=== PATIENT | female | born 1980 | race Caucasian/White ===

== ENCOUNTER 2016-10-03 14:32 | Inpatient (IN) | payer MEDICAID, OTHER ==
[~2016-10-03] VITALS: Ht 157.5 cm; Wt 76.7 kg
[~2016-10-03 14:32] MED LIST: ACET325T53 PO; HYDR4TAB26 PO; INSU100V11 SQ; LORA1TAB PO; ONDA4TAB5 PO; POTA20TA83 PO; SENN-153 PO; SSREG SUBCUT
[2016-10-03 14:35] VITALS: BP_SYST 76
[2016-10-03] MEDS ORDERED: NACL 0.9% 1,000 ML IV ONE ×2 (14:45→16:15)
[2016-10-03] MEDS ORDERED: PIPERACILLIN/TAZO 3.38 GM in NS 50 ML IV ONE (14:45)
[2016-10-03] MEDS ORDERED: ESOM20CA PO (15:04)
[2016-10-03] MEDS ORDERED: INSU100V11 SQ (15:04)
[2016-10-03] MEDS ORDERED: HYDR-1189 PO (15:04)
[2016-10-03] MEDS ORDERED: DIPH25TA62 PEG (15:04)
[2016-10-03] MEDS ORDERED: NEU300 PO (15:04)
[2016-10-03] MEDS ORDERED: METH500T6 PO (15:04)
[2016-10-03] MEDS ORDERED: ZOLP10TA2 PO (15:04)
[2016-10-03] MEDS ORDERED: SERT25TA PO (15:04)
[2016-10-03 15:11] LABS: HEMATOCRIT 35.5 % (36-48); HEMOGLOBIN 12.1 g/dL (12.0-16.0); MEAN CORPUSCULAR HEMOGLOBIN 32 pg (27-31); MEAN CORPUSCULAR HGB CONC 34 % (32-36); MEAN CORPUSCULAR VOLUME 95 fL (79.0-98.0); PLATELET COUNT (AUTO) 297 K/uL (130-430); RED BLOOD CELL COUNT(AUTO) 3.72 MIL/uL (4.2-6.2); RED CELL DISTRIBUTION WIDTH 12.4 % (9.0-15.0); WHITE BLOOD COUNT (AUTO) 10.8 K/uL (4.8-10.8)
[2016-10-03 15:15] LABS: CALCIUM 8.8 mg/dL (8.4-11.0); CREATININE 2.39 mg/dL (0.55-1.30)
[2016-10-03 15:17] LABS: INR 0.9 (0.8-1.2); PROTHROMBIN TIME 9.7 SECS (9.5-12.5)
[2016-10-03 15:20] LABS: ALBUMIN 2.6 g/dL (3.4-4.8); TOTAL BILIRUBIN 0.4 mg/dL (0.0-1.0); TOTAL PROTEIN, SERUM 7.1 g/dL (6.4-8.3)
[2016-10-03] MEDS ORDERED: PIPERACILLIN/TAZOBACTAM 3.375 GM/VIAL (ZOSYN) IV ONE (15:22)
[2016-10-03 15:31] LABS: BAND % (MANUAL) 10 % (0-6); BASOPHILS % (MANUAL) 0 % (0-2); EOSINOPHILS % (MANUAL) 0 % (0-7); LYMPHOCYTES % (MANUAL) 11 % (20-46); MONOCYTES % (MANUAL) 7 % (0-11)
[2016-10-03] MEDS ORDERED: SODIUM POLYSTYRENE SULFONATE 15 GM/60 ML UDBTL PO ONE (15:45)
[2016-10-03] MEDS ORDERED: SODIUM BICARBONATE 8.4% JECT 50 MEQ/50 ML SYRINGE IVP ONE (15:45)
[2016-10-03] MEDS ORDERED: INSULIN REGULAR, HUMAN 10 UNITS/0.1 ML INJ IVP ONE (15:45)
[2016-10-03] MEDS ORDERED: CALCIUM CHLORIDE 1 GM/10ML VIAL (13.6 mEq Ca++/VIAL) IVP ONE (15:45)
[2016-10-03] MEDS ORDERED: DEXTROSE 50% JECT 50 ML DISP.SYRIN IVP ONE (15:45)
[2016-10-03 16:16] LABS: BILIRUBIN,URINE NEGATIVE (NEGATIVE); BLOOD, URINE 3+ (NEGATIVE); CLARITY/URINE SL CLOUDY (CLEAR); COLOR,URINE YELLOW (YELLOW); GLUCOSE,URINE NEGATIVE (NEGATIVE); KETONES,URINE NEGATIVE (NEGATIVE); LEUKOCYTE ESTERASE ,URINE 3+ (NEGATIVE); NITRITE, URINE POSITIVE (NEGATIVE); PH,URINE 8.5 (5.0-8.0); PROTEIN URINE 3+ (NEGATIVE); UROBILINOGEN,URINE 0.2 (0.2-1.0)
[2016-10-03 16:25] LABS: BACTERIA,URINE MANY /HPF (None Seen); MUCUS,URINE None Seen /LPF (None Seen); RBC,URINE 20-50 /HPF (0-3); WBC,URINE >100 /HPF (0-3)
[2016-10-03] MEDS ORDERED: DIPHENHYDRAMINE INJ 50 MG/ML VIAL IVP ONE (16:30)
[2016-10-03] MEDS ORDERED: CALCIUM CHLORIDE 1 GM/10 ML DISP.SYRIN (14 mEq Ca++/SYR) ONE (16:32)
[2016-10-03] MEDS ORDERED: MORPHINE 4 MG/ML INJ. SYRINGE IVP ONE (17:00)
[2016-10-03] MEDS ORDERED: ONDANSETRON HCL 4 MG/2 ML VIAL IVP PRN (17:00)
[2016-10-03] MEDS ORDERED: MAGNESIUM SULFATE 50 ML IV PRN (17:00)
[2016-10-03] MEDS ORDERED: DOCUSATE SODIUM 100 MG CAPSULE PO PRN (17:00)
[2016-10-03] MEDS ORDERED: POTASSIUM CHLORIDE 10 MEQ TAB.PRT.SR PO PRN (17:00)
[2016-10-03] MEDS ORDERED: ACETAMINOPHEN 325 MG TABLET PO PRN (17:00)
[2016-10-03] MEDS ORDERED: HYDROcodone/ACETAMIN 5-325 MG TAB (NORCO/ VICODIN) PO PRN (17:00)
[2016-10-03] MEDS ORDERED: ZOLPIDEM TARTRATE 5 MG TABLET PO PRN (17:00)
[2016-10-03] MEDS: INSULIN REGULAR, HUMAN 100 UNITS/ML, 10 ML VIAL (novoLIN R) SUBCUT PRN ×2 (18:43→21:52)
[2016-10-03] MEDS: LORazepam 2 MG/ML VIAL IVP PRN (19:09)
[2016-10-03] MEDS ORDERED: cefTRIAXone 1 GM VIAL ONE (20:48)
[2016-10-03 20:56] VITALS: BP_SYST 129
[2016-10-03] MEDS: NACL 0.9% 1,000 ML IV SCH (21:45)
[2016-10-03] MEDS: cefTRIAXone 1 GM in D5W 50 ML IV SCH (21:45)
[2016-10-03] MEDS: HEPARIN SODIUM,PORCINE 5000 UNITS/ML VIAL SUBCUT SCH (21:50)
[2016-10-03] MEDS: MORPHINE 2 MG/ML INJ. SYRINGE IVP PRN (22:07)
[2016-10-04] VITALS: BP_SYST 96
[2016-10-04 04:00] VITALS: BP_SYST 113
[2016-10-04] MEDS: MORPHINE 2 MG/ML INJ. SYRINGE IVP PRN ×4 (04:26→17:05)
[2016-10-04] MEDS: NACL 0.9% 1,000 ML IV SCH ×2 (04:27→17:48)
[2016-10-04 06:08] LABS: CALCIUM 8.7 mg/dL (8.4-11.0); CREATININE 1.77 mg/dL (0.55-1.30); POTASSIUM 4.8 mmol/L (3.5-5.1)
[2016-10-04 06:22] LABS: BASOPHILS % (AUTO) 0.3 % (0.0-2.0); EOSINOPHILS # (AUTO) 0.1 K/uL (0.0-0.4); EOSINOPHILS % (AUTO) 1.2 % (0.0-4.0); HEMATOCRIT 29.6 % (36-48); LYMPHOCYTES # (AUTO) 1.6 K/uL (1.0-5.5); LYMPHOCYTES % (AUTO) 19.4 % (20.5-51.5); MEAN CORPUSCULAR HEMOGLOBIN 32 pg (27-31); MEAN CORPUSCULAR HGB CONC 34 % (32-36); MEAN CORPUSCULAR VOLUME 96 fL (79.0-98.0); MONOCYTES # (AUTO) 0.6 K/uL (0.0-1.0); MONOCYTES % (AUTO) 6.6 % (1.7-9.3); NEUTROPHILS # (AUTO) 6.1 K/uL (1.8-7.7); NEUTROPHILS % (AUTO) 72.5 % (40.0-70.0); PLATELET COUNT (AUTO) 215 K/uL (130-430); WHITE BLOOD COUNT (AUTO) 8.4 K/uL (4.8-10.8)
[2016-10-04 08:03] VITALS: BP_SYST 113
[2016-10-04] MEDS: HEPARIN SODIUM,PORCINE 5000 UNITS/ML VIAL SUBCUT SCH ×2 (08:37→21:46)
[2016-10-04] MEDS: GABAPENTIN 300 MG CAPSULE PO SCH (08:38)
[2016-10-04] MEDS: LORazepam 2 MG/ML VIAL IVP PRN ×3 (08:50→17:04)
[2016-10-04 13:06] VITALS: BP_SYST 117
[2016-10-04 16:56] VITALS: BP_SYST 107
[2016-10-04] MEDS: cefTRIAXone 1 GM in D5W 50 ML IV SCH (17:07)
[2016-10-04] MEDS: INSULIN REGULAR, HUMAN 100 UNITS/ML, 10 ML VIAL (novoLIN R) SUBCUT PRN ×2 (17:51→21:45)
[2016-10-04 19:20] VITALS: BP_SYST 114
[2016-10-04] MEDS: MORPHINE 4 MG/ML INJ. SYRINGE IVP PRN (21:36)
[2016-10-05] MEDS: MORPHINE 4 MG/ML INJ. SYRINGE IVP PRN ×4 (01:19→12:57)
[2016-10-05 01:34] VITALS: BP_SYST 132
[2016-10-05] MEDS: LORazepam 2 MG/ML VIAL IVP PRN ×3 (03:49→12:56)
[2016-10-05] MEDS: INSULIN REGULAR, HUMAN 100 UNITS/ML, 10 ML VIAL (novoLIN R) SUBCUT PRN ×2 (05:44→12:27)
[2016-10-05] MEDS: NACL 0.9% 1,000 ML IV SCH (05:46)
[2016-10-05 05:53] LABS: BASOPHILS % (AUTO) 0.5 % (0.0-2.0); EOSINOPHILS # (AUTO) 0.1 K/uL (0.0-0.4); EOSINOPHILS % (AUTO) 1.9 % (0.0-4.0); HEMATOCRIT 29.9 % (36-48); HEMOGLOBIN 9.8 g/dL (12.0-16.0); LYMPHOCYTES # (AUTO) 1.8 K/uL (1.0-5.5); LYMPHOCYTES % (AUTO) 24.6 % (20.5-51.5); MEAN CORPUSCULAR HEMOGLOBIN 32 pg (27-31); MEAN CORPUSCULAR HGB CONC 33 % (32-36); MEAN CORPUSCULAR VOLUME 97 fL (79.0-98.0); MONOCYTES # (AUTO) 0.4 K/uL (0.0-1.0); NEUTROPHILS # (AUTO) 4.8 K/uL (1.8-7.7); PLATELET COUNT (AUTO) 231 K/uL (130-430); RED BLOOD CELL COUNT(AUTO) 3.09 MIL/uL (4.2-6.2); RED CELL DISTRIBUTION WIDTH 12.5 % (9.0-15.0); WHITE BLOOD COUNT (AUTO) 7.1 K/uL (4.8-10.8)
[2016-10-05 05:59] LABS: CALCIUM 8.4 mg/dL (8.4-11.0); CREATININE 1.1 mg/dL (0.55-1.30); POTASSIUM 4.6 mmol/L (3.5-5.1)
[2016-10-05 06:48] VITALS: BP_SYST 142
[2016-10-05 08:00] VITALS: BP_SYST 135
[2016-10-05] MEDS: GABAPENTIN 300 MG CAPSULE PO SCH (09:04)
[2016-10-05] MEDS: HEPARIN SODIUM,PORCINE 5000 UNITS/ML VIAL SUBCUT SCH (09:11)
[2016-10-05 11:26] VITALS: BP_SYST 136
[2016-10-05 12:17] VITALS: BP_SYST 122
[2016-10-05] MEDS ORDERED: MUPIROCIN 2% TOPICAL OINTMENT 22 GM TP SCH (21:00)
[2016-10-06] MEDS ORDERED: ESOM20CA38 PO (07:39)
[2016-10-06] MEDS ORDERED: POTA20TA83 PO (07:39)
== END 2016-10-05 17:26 | DRG 720 ==
LOC: SED 14:32 → STU 16:11
PROVIDERS: ADMIT General Practice; ATTEND General Practice
DX: A41.9 Sepsis, unspecified organism (principal); N17.0 Acute kidney failure with tubular necrosis; L89.154 Pressure ulcer of sacral region, stage 4; G82.20 Paraplegia, unspecified; E44.0 Moderate protein-calorie malnutrition; E87.5 Hyperkalemia; F11.20 Opioid dependence, uncomplicated; N39.0 Urinary tract infection, site not specified; E11.9 Type 2 diabetes mellitus without complications; Z93.3 Colostomy status; Z88.1 Allergy status to other antibiotic agents; Z88.2 Allergy status to sulfonamides; Z79.899 Other long term (current) drug therapy; Z87.81 Personal history of (healed) traumatic fracture; Z68.30 Body mass index [BMI] 30.0-30.9, adult; Z74.01 Bed confinement status
CPT/HCPCS: 36415; 71010; 80048; 80053; 81000-TC; 82962; 83605; 83690-TC; 83735-TC; 85007; 85025; 85027; 85610-TC; 87040-TC; 87081; 87086; 87186-TC; 93005; 96361; 96374; 96375; 99285; J0696; J1200; J1644; J1815; J2060; J2270; J2405; J2543; J7030; J7060

== ENCOUNTER 2016-10-06 07:24 | Inpatient (IN) | payer MEDICAID ==
[~2016-10-06] VITALS: Ht 167.6 cm; Wt 73.9 kg
[~2016-10-06 07:24] MED LIST changes: +DIPH25TA62 PEG; +HYDR-1189 PO; +METH500T6 PO; +NEU300 PO; -POTA20TA83 PO; +SERT25TA PO; +ZOLP10TA2 PO
--- NOTE | 2016-10-06 07:24 | NUR ---
Arrived via BLS ambulance. Placed in room 6. Placed on cafeteria monitor, blood pressure machine and pulse oximeter. To gown for exam. Side rails up.
--- NOTE | 2016-10-06 07:31 | NUR ---
ER Dr. Licea at bedside examining patient.
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
[2016-10-06 07:32] VITALS: BP_SYST 132
[2016-10-06] MEDS ORDERED: POTA20TA83 PO (07:39)
[2016-10-06] MEDS ORDERED: ESOM20CA38 PO (07:39)
--- NOTE | 2016-10-06 07:39 | NUR ---
Medication reconciliation completed based upon medication list provided by SNF.
[2016-10-06] MEDS ORDERED: MORPHINE 2 MG/ML INJ. SYRINGE IVP ONE (07:45)
[2016-10-06] MEDS ORDERED: ONDANSETRON HCL 4 MG/2 ML VIAL IVP ONE (07:45)
[2016-10-06] MEDS: NS 500 ML IV SCH ×2 (07:47→10:01)
--- NOTE | 2016-10-06 07:55 | NUR ---
Lab at bedside for blood draw.
--- NOTE | 2016-10-06 08:09 | NUR ---
Note philippe in EDM - 10/06/16 at 0811 by AFIA Pt alert, responsive, states that she is ready to go home. Called significant other, Olayinka Hassan, by number provided by patient. He states that he will come cloth picker pt.
[2016-10-06 08:10] LABS: BASOPHILS % (AUTO) 0.5 % (0.0-2.0); EOSINOPHILS # (AUTO) 0.2 K/uL (0.0-0.4); EOSINOPHILS % (AUTO) 2.8 % (0.0-4.0); HEMATOCRIT 31.4 % (36-48); HEMOGLOBIN 10.1 g/dL (12.0-16.0); LYMPHOCYTES # (AUTO) 1.8 K/uL (1.0-5.5); LYMPHOCYTES % (AUTO) 30.3 % (20.5-51.5); MEAN CORPUSCULAR HEMOGLOBIN 31 pg (27-31); MEAN CORPUSCULAR HGB CONC 32 % (32-36); MEAN CORPUSCULAR VOLUME 96 fL (79.0-98.0); MONOCYTES # (AUTO) 0.3 K/uL (0.0-1.0); MONOCYTES % (AUTO) 5.3 % (1.7-9.3); NEUTROPHILS # (AUTO) 3.7 K/uL (1.8-7.7); NEUTROPHILS % (AUTO) 61.1 % (40.0-70.0); PLATELET COUNT (AUTO) 261 K/uL (130-430); RED BLOOD CELL COUNT(AUTO) 3.27 MIL/uL (4.2-6.2); RED CELL DISTRIBUTION WIDTH 12.3 % (9.0-15.0)
[2016-10-06 08:11] LABS: BILIRUBIN,URINE NEGATIVE (NEGATIVE); BLOOD, URINE 3+ (NEGATIVE); CLARITY/URINE HAZY (CLEAR); COLOR,URINE YELLOW (YELLOW); GLUCOSE,URINE 1+ (NEGATIVE); KETONES,URINE NEGATIVE (NEGATIVE); LEUKOCYTE ESTERASE ,URINE 1+ (NEGATIVE); NITRITE, URINE NEGATIVE (NEGATIVE); PH,URINE 5.5 (5.0-8.0); PROTEIN URINE 3+ (NEGATIVE); UROBILINOGEN,URINE 0.2 (0.2-1.0)
[2016-10-06 08:18] LABS: RBC,URINE 20-50 /HPF (0-3)
[2016-10-06 08:19] LABS: BACTERIA,URINE MODERATE /HPF (None Seen); WBC,URINE 20-50 /HPF (0-3)
[2016-10-06 08:21] LABS: CALCIUM 8.6 mg/dL (8.4-11.0); CREATININE 0.72 mg/dL (0.55-1.30); POTASSIUM 4.8 mmol/L (3.5-5.1)
[2016-10-06 08:25] LABS: ALBUMIN 2.1 g/dL (3.4-4.8); TOTAL BILIRUBIN 0.2 mg/dL (0.0-1.0); TOTAL PROTEIN, SERUM 6.3 g/dL (6.4-8.3)
[2016-10-06 08:27] LABS: INR 0.8 (0.8-1.2); PROTHROMBIN TIME 9.1 SECS (9.5-12.5)
--- NOTE | 2016-10-06 08:46 | NUR ---
Pt resting quietly, eyes closed, NAD.
--- NOTE | 2016-10-06 08:50 | NUR ---
Patient will be admitted to care of Dr. Henderson. Admitted to Med/Surg unit. Will go to room 112A. Belongings list completed. Summary report printed. Bedside report given to FAUSTO Pino.
--- NOTE | 2016-10-06 09:09 | NUR ---
ADMISSION NOTE Received patient from ER via sydni, received report from Cassius LAMBERT. Patient admitted with diagnosis of Symptomatic Gallstone. Patient oriented to hospital routine, call light, toileting and safety-patient verbalized understanding.
[2016-10-06 09:23] VITALS: BP_SYST 132
--- NOTE | 2016-10-06 09:29 | NUR ---
GI CONSULT CALLED Called [phone] ELIE OLIVARES Gall stones
[2016-10-06] MEDS ORDERED: ACETAMINOPHEN 325 MG TABLET PO PRN (09:45)
[2016-10-06] MEDS ORDERED: DOCUSATE SODIUM 100 MG CAPSULE PO PRN (09:45)
[2016-10-06] MEDS ORDERED: LORazepam 2 MG/ML VIAL IVP PRN (09:45)
[2016-10-06] MEDS ORDERED: ZOLPIDEM TARTRATE 5 MG TABLET PO PRN (09:45)
[2016-10-06] MEDS ORDERED: MAGNESIUM SULFATE 50 ML IV PRN (09:45)
[2016-10-06] MEDS ORDERED: POTASSIUM CHLORIDE 10 MEQ TAB.PRT.SR PO PRN (09:45)
[2016-10-06] MEDS ORDERED: DEXTROSE 50% JECT 50 ML DISP.SYRIN IVP PRN (09:45)
--- NOTE | 2016-10-06 09:50 | NUR ---
PATIENT'S MOTHER CALLED TO ASK WHY PATIENT HAS BEEN ADMITTED. INFORMED MOTHER THE MD'S SUSPECT CHOLELITHIASIS AND SHE WILL BE GOING THROUGH A FEW TESTS TO DETERMINE THAT
--- NOTE | 2016-10-06 10:36 | NUR ---
0800 BG 150, 0945 BG CHECK APPROVED AT 1015, NOT INDICATED PATIENT BG WAS JUST CHECKED, PATIENT IS NPO AND HAS NOT STARTED D5, BG WILL BE RECHECKED PER PROTOCOL AT 1130
--- NOTE | 2016-10-06 10:55 | NUR ---
PATIENT TURNED AND REPOSITIONED BY RNSWATI AND INSIDE SALES RECRUITER PATRICIA JOHNSON
[2016-10-06] MEDS: MORPHINE 2 MG/ML INJ. SYRINGE IVP PRN ×3 (11:04→21:40)
[2016-10-06 11:48] VITALS: BP_SYST 104
--- NOTE | 2016-10-06 12:07 | NUR ---
BG 159, WILL COVER WHEN IV FLUIDS ARE HUNG. PATIENT CURRENTLY SLEEPING. NO SIGNS OF DISTRESS
[2016-10-06] MEDS: PIPERACILLIN/TAZO 3.375/DEX-IS 50 ML IV SCH ×2 (12:15→18:19)
[2016-10-06] MEDS: D5NS 1,000 ML IV SCH ×2 (12:15→21:40)
[2016-10-06] MEDS ORDERED: PANTOPRAZOLE SODIUM 40 MG/VIAL (PROTONIX) IVP ONE (13:45)
--- NOTE | 2016-10-06 13:58 | NUR ---
2 UNITS OF NOVOLOG GIVEN. PATIENT REQUESTING MORE PAIN MEDICATION. EXPLAINED TO PATIENT SHE COULD NOT HAVE NARCOTICS UNTIL AFTER THE HIDA SCAN.
[2016-10-06] MEDS: INSULIN ASPART 100 UNITS/ML, 10 ML VIAL (NovoLOG) SUBCUT PRN (14:49)
[2016-10-06] MEDS: METHOCARBAMOL 500 MG TABLET PO SCH ×2 (15:00→21:39)
--- NOTE | 2016-10-06 15:02 | NUR ---
patient medicated as ordered, repositioned by rn. colostomy bag assessed, raphael assessed.
--- NOTE | 2016-10-06 15:12 | NUR ---
PATIENT TAKEN TO HIDA SCAN VIA GURNEY
--- NOTE | 2016-10-06 15:45 | NUR ---
Wound evaluation: Attempted to see patient for wound evaluation, the patient was at a procedure for a HIDA scan.
[2016-10-06 15:46] VITALS: BP_SYST 130
--- NOTE | 2016-10-06 16:33 | NUR ---
1500 meds delayed due to npo and now patient is still in nuclear med for hida scan
--- NOTE | 2016-10-06 17:10 | NUR ---
Wound evaluation: Attempted to see patient for wound evaluation, the patient was at a procedure for a HIDA scan. Second attempt.
--- NOTE | 2016-10-06 17:38 | NUR ---
PATIENT REMAINS IN NUCLEAR MEDICINE FOR EXAM. MOTHER CALLED TO CHECK ON HER. UPDATED MOTHER ON PATIENT'S LOCATION
[2016-10-06 19:40] VITALS: BP_SYST 123
--- NOTE | 2016-10-06 19:40 | NUR ---
INITIAL NOTES; -Pt is a/ox4, resting in bed. Pt denies any pain,chest pain,sob,or any acute distress this time. Almonte cath w/ gravity drains clear yellow urine output. Colostomy in place,no leakage axaos-owth-bopyzh yellow stool. IV site of rt wrist #20 patent, no s/s any iv infiltration noted. IVF @ D5NS @ 80ml/hr. Nikita Lower ankles and feet edema + 2 pitting noted. Elevates nikita lower extrem with pillows. All safety measures in place. SCD in place nikita lower extremities. Skin tear of lower abdomen-cleaned w/ NS, applied Z-guard. Discussed poc,all safety measures, to be NPO after midnight for EGD procedure, pt verbalized understanding, but pt stated that GI MD didn't discuss EGD procedure with patient yet. Informed pt to be NPO after midnight and to ask GI MD tomorrow prior EGD procedure, pt verbalized understanding. Call light w/in reach. Continue to monitor pt.
[2016-10-06] MEDS: DIPHENHYDRAMINE HCL 25 MG CAPSULE PO PRN (21:39)
--- NOTE | 2016-10-06 21:40 | NUR ---
PAIN MEDIC -Pt is c/o abdominal pain, gave Morphine Sulfate 2mg IVP. See EMAR for pain reassessment w/in 30 mins. All safety measures in place. Bed alarm in place, low position, side rails x3. Call light w/in reach. Continue to monitor pt.
[2016-10-06] MEDS: ONDANSETRON HCL 4 MG/2 ML VIAL IVP PRN (21:45)
--- NOTE | 2016-10-06 21:45 | NUR ---
JUST NAUSEA ONLY -Pt is c/o just nausea after pain medication administered. Gave Zofran 4mg IVP. All safety measures in place. Bed alarm in place, low position, side rails x3. Call light w/in reach. Continue to monitor pt.
--- NOTE | 2016-10-06 22:10 | NUR ---
ROUNDS; CHG BATHE PROVIDED AND DRSG CHANGED TOO -Pt awakes, gave CHG bathed and pt tolerated well. Pt denies any pain,chest pain,sob,or any acute distress this time. Almonte cath bag leaked, changed new Almonte cath bag-no leakage noted. Now, pt is cleaned and dry. Turned and repositioned and q 2 hrs. NO s/s any iv infiltration noted. All safety measures in place. Call light w/in reach. Continue to monitor pt.
--- NOTE | 2016-10-07 | NUR ---
NPO AFTER MIDNIGHT FOR EGD PROCEDURE -Reminded pt to be NPO after midnight for EGD procedure, pt verbalized understanding. Removed all food and drink away from tablet. Call light /win reach.
--- NOTE | 2016-10-07 00:12 | NUR ---
ROUNDS; -Pt is resting. No s/s any pain,chest pain,sob,or any acute distress this time noted. NO s/s any IV infiltration noted. Almonte cath w/ gravity drains yellow urine output-no leakage noted. All safety measures in place. Bed alarm in place, low position, side rails x3. Call light w/in reach. Continue to monitor pt.
[2016-10-07] MEDS: PIPERACILLIN/TAZO 3.375/DEX-IS 50 ML IV SCH ×4 (00:57→18:33)
[2016-10-07 01:11] VITALS: BP_SYST 129
[2016-10-07] MEDS: MORPHINE 2 MG/ML INJ. SYRINGE IVP PRN ×3 (01:48→09:31)
[2016-10-07 04:00] VITALS: BP_SYST 125
--- NOTE | 2016-10-07 05:06 | NUR ---
ROUNDS; -Pt is resting. No s/s any pain,chest pain,sob,or any acute distress this time noted. NO s/s any IV infiltration noted. Colostomy in place,no leakage noted of left lower abdominal site. Almonte cath w/ gravity drains yellow urine output-no leakage noted. All safety measures in place. Bed alarm in place, low position, side rails x3. Call light w/in reach. Continue to monitor pt.
[2016-10-07] MEDS: D5NS 1,000 ML IV SCH (05:07)
--- NOTE | 2016-10-07 06:05 | NUR ---
PAIN MEDICATION ADMINISTERED -Pt is c/o abdominal pain, gave Morphine Sulfate 2mg IVP. See EMAR for pain reassessment w/in 30 mins. All safety measures in place. Bed alarm in place, low position, side rails x3. Call light w/in reach. Continue to monitor pt.
--- NOTE | 2016-10-07 07:01 | NUR ---
CLOSING NOTES; -Pt is resting in bed. No s/s any pain,chest pain,sob,or any acute distress noted. Almonte cath w/ gravity drains clear yellow urine output. Colostomy in place,no leakage fspfm-eghz-vkvmhn yellow stool. IV site of rt wrist #20 patent, no s/s any iv infiltration noted. IVF @ D5NS @ 80ml/hr. All safety measures in place. SCD in place juan lower extremities. Kept pt NPO since midnight for EGD procedure, pt verbalized understanding, but pt stated that GI MD didn't discuss EGD procedure with patient yet. Call light w/in reach. Call light w/in reach. Will endorse to oncoming nurse to continue care.
[2016-10-07 07:27] LABS: BASOPHILS % (AUTO) 0.7 % (0.0-2.0); EOSINOPHILS # (AUTO) 0.2 K/uL (0.0-0.4); EOSINOPHILS % (AUTO) 3.7 % (0.0-4.0); HEMATOCRIT 28.3 % (36-48); HEMOGLOBIN 9.4 g/dL (12.0-16.0); LYMPHOCYTES % (AUTO) 34.3 % (20.5-51.5); MEAN CORPUSCULAR HEMOGLOBIN 32 pg (27-31); MEAN CORPUSCULAR HGB CONC 33 % (32-36); MEAN CORPUSCULAR VOLUME 96 fL (79.0-98.0); MONOCYTES # (AUTO) 0.4 K/uL (0.0-1.0); MONOCYTES % (AUTO) 7.1 % (1.7-9.3); NEUTROPHILS # (AUTO) 3.2 K/uL (1.8-7.7); NEUTROPHILS % (AUTO) 54.2 % (40.0-70.0); PLATELET COUNT (AUTO) 277 K/uL (130-430); RED BLOOD CELL COUNT(AUTO) 2.95 MIL/uL (4.2-6.2); RED CELL DISTRIBUTION WIDTH 12.7 % (9.0-15.0); WHITE BLOOD COUNT (AUTO) 5.9 K/uL (4.8-10.8)
[2016-10-07 07:45] LABS: CALCIUM 8.4 mg/dL (8.4-11.0); CREATININE 0.73 mg/dL (0.55-1.30); POTASSIUM 4.9 mmol/L (3.5-5.1)
--- NOTE | 2016-10-07 08:00 | NUR ---
OPENING NOTES PATIENT APPEARS PALE, WITHDRAWN. REPORTS PAIN. ADVISED HER MEDICATIONS ARE DUE AFTER 0900. VITALS WNL.
[2016-10-07] MEDS: GABAPENTIN 300 MG CAPSULE PO SCH (09:31)
[2016-10-07] MEDS: PANTOPRAZOLE SODIUM 40 MG/VIAL (PROTONIX) IVP SCH (09:31)
[2016-10-07] MEDS: SERTRALINE HCL 50 MG TABLET PO SCH (09:32)
[2016-10-07] MEDS: METHOCARBAMOL 500 MG TABLET PO SCH ×3 (09:33→21:11)
[2016-10-07] MEDS: ONDANSETRON HCL 4 MG/2 ML VIAL IVP PRN (09:38)
--- NOTE | 2016-10-07 10:20 | NUR ---
MOTHER CALLED RN TO DISCUSS PTS PSYCH ISSUES. ASKED THAT MD BE MADE AWARE OF PATIENT'S BELIEF AND STRONG DESIRE TO BE ABLE TO WALK. PER MOTHER PATIENT HAS LOST BONE DENSITY IN LEGS AND NOT ONLY IS PARALYZED BUT ALSO HER LEGS WILL BREAK UNDER HER WEIGHT
--- NOTE | 2016-10-07 10:59 | NUR ---
DR RENE AT BEDSIDE TO SEE PATIENT. NEW ORDERS FOR PAIN MEDICATION GIVEN PATIENT HAS NOT BEEN PAIN FREE FOR HER STAY. PER PATIENT SHE DOES NOT WANT DILAUDID, JUST HIGHER DOSE PF MORPHINE. ORDERS RECEIVED FROM DR RENE
[2016-10-07 11:33] VITALS: BP_SYST 103
--- NOTE | 2016-10-07 11:38 | NUR ---
ADVISED PATIENT NEW ORDERS FOR MORPHINE GIVEN AND SHE MAY HAVE THE NEXT DOSE CLOSE TO 1PM.
--- NOTE | 2016-10-07 12:32 | NUR ---
PATIENT MEDICATED FOR PAIN AND WITH ANTIBIOTICS PER ORDERS
[2016-10-07] MEDS: MORPHINE 4 MG/ML INJ. SYRINGE IVP PRN ×3 (12:46→23:04)
[2016-10-07] MEDS: INSULIN ASPART 100 UNITS/ML, 10 ML VIAL (NovoLOG) SUBCUT PRN ×2 (12:49→21:14)
[2016-10-07] MEDS: MEPERIDINE HCL/PF 100 MG/ML AMP ONE ×3 (13:36→14:45)
[2016-10-07] MEDS: MIDAZOLAM HCL 5 MG/5 ML VIAL ONE ×3 (13:36→14:45)
[2016-10-07] MEDS ORDERED: SIMETHICONE 40 MG/0.6 ML ML ONE (13:37)
--- NOTE | 2016-10-07 14:00 | NUR ---
PATIENT TAKEN TO GI LAB
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
--- NOTE | 2016-10-07 14:25 | NUR ---
DR LELIA YOU RE POSSIBLE SEIZURE. Addendum: 10/07/16 at 1519 by Cecilia Ceja RN WRONG PATIENT
[2016-10-07 16:04] VITALS: BP_SYST 129
[2016-10-07 19:20] VITALS: BP_SYST 98
--- NOTE | 2016-10-07 19:20 | NUR ---
INITIAL NOTES; -Pt is a/ox4, resting in bed. Pt denies any pain,chest pain,sob,or any acute distress this time. Daughter is at bedside. Almonte cath w/ gravity drains clear yellow urine output. Colostomy in place,no leakage yczml-fled-afudie yellow stool. IV site of lac #22 patent, no s/s any iv infiltration noted. IVF @ D5NS @ 80ml/hr. Nikita Lower ankles and feet edema + 2 pitting noted. Elevates nikita lower extrem with pillows. All safety measures in place. SCD in place nikita lower extremities. Skin tear of lower abdomen-cleaned w/ NS, applied Z-guard. Discussed poc,all safety measures,pain mgmt, pt verbalized understanding. Fall precaution in place. Call light w/in reach. Continue to monitor pt.
--- NOTE | 2016-10-07 23:04 | NUR ---
PAIN MEDICATION ADMINISTERED -Pt is c/o abdominal pain. Given Morphine Sulfate 4mg IVP by Marciano-Nurse. See EMAR for pain reassessment w/in 30 mins. All safety measures in place. Bed alarm in place, low position, side rails x3. Call light w/in reach. Continue to monitor pt.
[2016-10-08 00:11] VITALS: BP_SYST 114
[2016-10-08] MEDS: D5NS 1,000 ML IV SCH ×2 (00:45→11:45)
[2016-10-08] MEDS: PIPERACILLIN/TAZO 3.375/DEX-IS 50 ML IV SCH ×4 (00:45→18:50)
[2016-10-08] MEDS: MORPHINE 4 MG/ML INJ. SYRINGE IVP PRN ×4 (03:31→20:49)
--- NOTE | 2016-10-08 03:32 | NUR ---
PAIN MEDICATION ADMINISTERED -Pt is c/o abdominal pain. Given Morphine Sulfate 4mg IVP. See EMAR for pain reassessment w/in 30 mins. All safety measures in place. Bed alarm in place, low position, side rails x3. Call light w/in reach. Continue to monitor pt.
[2016-10-08] MEDS: DIPHENHYDRAMINE HCL 25 MG CAPSULE PO PRN (05:51)
--- NOTE | 2016-10-08 05:55 | NUR ---
ROUNDS;BLOOD XROFC=[id number],GAVE 8 UNITS SUBCUT OF SSI NOVOLOG. -Pt is having menstrual period, applied peripad b/w thighs. No s/s IV infiltration noted. IV site of LAC patent,drsg cdi. IVF D5NS @ 80ml/hr. Colostomy bag in place with small loose yellow stool-new bag changed earlier by Abdoulaye Nurse. Almonte cath w/ gravity drains yellow urine output. SCD juan lower extrem in place. All safety measures in place. Bed alarm in place, low position, side rails x3. Call light w/in reach. Continue to monitor pt.
[2016-10-08] MEDS: INSULIN ASPART 100 UNITS/ML, 10 ML VIAL (NovoLOG) SUBCUT PRN ×3 (05:56→20:51)
--- NOTE | 2016-10-08 06:59 | NUR ---
CLOSING NOTES; -Pt is resting in bed. No s/s any acute distress noted. Almonte cath w/ gravity drains clear yellow urine output. Colostomy in place,no leakage noted. IV site of rt wrist #20 patent, no s/s any iv infiltration noted. IVF @ D5NS @ 80ml/hr. All safety measures in place. SCD in place juan lower extremities. Call light w/in reach. Will endorse to oncoming nurse to continue care.
[2016-10-08 07:33] LABS: BASOPHILS % (AUTO) 0.8 % (0.0-2.0); EOSINOPHILS # (AUTO) 0.2 K/uL (0.0-0.4); EOSINOPHILS % (AUTO) 2.7 % (0.0-4.0); HEMATOCRIT 28.8 % (36-48); HEMOGLOBIN 9.4 g/dL (12.0-16.0); LYMPHOCYTES # (AUTO) 1.8 K/uL (1.0-5.5); LYMPHOCYTES % (AUTO) 31.7 % (20.5-51.5); MEAN CORPUSCULAR HEMOGLOBIN 32 pg (27-31); MEAN CORPUSCULAR HGB CONC 33 % (32-36); MEAN CORPUSCULAR VOLUME 97 fL (79.0-98.0); MONOCYTES # (AUTO) 0.3 K/uL (0.0-1.0); MONOCYTES % (AUTO) 5.4 % (1.7-9.3); NEUTROPHILS # (AUTO) 3.3 K/uL (1.8-7.7); NEUTROPHILS % (AUTO) 59.4 % (40.0-70.0); PLATELET COUNT (AUTO) 296 K/uL (130-430); RED BLOOD CELL COUNT(AUTO) 2.97 MIL/uL (4.2-6.2); RED CELL DISTRIBUTION WIDTH 12.5 % (9.0-15.0); WHITE BLOOD COUNT (AUTO) 5.6 K/uL (4.8-10.8)
--- NOTE | 2016-10-08 07:34 | NUR ---
OPENING08 NOTE RECEIVED PATIENT REPORT FROM SPECIAL MACHINE OPERATOR NURSE. PATIENT RESTING COMFORTABLY IN BED. PATIENT STATES 10/10 PAIN, WOULD LIKE PAIN MEDICATIONS WHEN AVAILABLE. PATIENT HAS NO NOTABLE SIGNS OF DISTRESS AT THIS TIME. IV RUNNING PER MD ORDERS. PATIENTS BED IN LOWEST POSITION, CALL LIGHT WITHIN REACH, AND SIDE RAILS ARE UP FOR SAFETY. WILL CONTINUE TO MONITOR PATIENT FOR CHANGES IN STATUS.
[2016-10-08 07:42] LABS: CALCIUM 7.9 mg/dL (8.4-11.0); CREATININE 0.92 mg/dL (0.55-1.30); POTASSIUM 4.2 mmol/L (3.5-5.1)
[2016-10-08 08:54] VITALS: BP_SYST 122
[2016-10-08] MEDS: METHOCARBAMOL 500 MG TABLET PO SCH ×3 (09:23→20:48)
[2016-10-08] MEDS: SERTRALINE HCL 50 MG TABLET PO SCH (09:23)
[2016-10-08] MEDS: PANTOPRAZOLE SODIUM 40 MG/VIAL (PROTONIX) IVP SCH (09:23)
[2016-10-08] MEDS: GABAPENTIN 300 MG CAPSULE PO SCH (09:23)
--- NOTE | 2016-10-08 09:54 | NUR ---
1000 NOTE PATIENT RESTING COMFORTABLY IN BED. PATIENT STATES 10/10 PAIN, PAIN MEDICATION GIVEN FOR RELIEF, REASSESSED AT 7/10, TOLERABLE AT THIS TIME PER PATIENT. PATIENT HAS NO NOTABLE SIGNS OF DISTRESS AT THIS TIME. IV RUNNING PER MD ORDERS. TAYLOR CATHETER DRAINING TO GRAVITY, PATIENT HAS COLOSTOMY FOR BOWEL MOVEMENTS. PATIENTS BED IN LOWEST POSITION, CALL LIGHT WITHIN REACH, AND SIDE RAILS ARE UP FOR SAFETY. WILL CONTINUE TO MONITOR PATIENT FOR CHANGES IN STATUS.
[2016-10-08 11:36] VITALS: BP_SYST 114
--- NOTE | 2016-10-08 12:17 | NUR ---
1200 NOTE PATIENT RESTING COMFORTABLY IN BED. PATIENT HAS NO NOTABLE SIGNS OF DISTRESS AT THIS TIME. IV RUNNING PER MD ORDERS. TAYLOR CATHETER DRAINING TO GRAVITY, PATIENT HAS COLOSTOMY FOR BOWEL MOVEMENTS. PATIENT TURNED AND REPOSITIONED ON PILLOWS. PATIENTS BED IN LOWEST POSITION, CALL LIGHT WITHIN REACH, AND SIDE RAILS ARE UP FOR SAFETY. WILL CONTINUE TO MONITOR PATIENT FOR CHANGES IN STATUS.
--- NOTE | 2016-10-08 14:38 | NUR ---
1400 NOTE PATIENT RESTING COMFORTABLY IN BED. PATIENT HAS NO NOTABLE SIGNS OF DISTRESS AT THIS TIME. IV RUNNING PER MD ORDERS. TAYLOR CATHETER DRAINING TO GRAVITY, PATIENT HAS COLOSTOMY FOR BOWEL MOVEMENTS. PATIENT TURNED AND REPOSITIONED ON PILLOWS. PATIENT WOULD LIKE MEDICATIONS SOON AVAILABLE. PATIENTS BED IN LOWEST POSITION, CALL LIGHT WITHIN REACH, AND SIDE RAILS ARE UP FOR SAFETY. WILL CONTINUE TO MONITOR PATIENT FOR CHANGES IN STATUS.
[2016-10-08 15:57] VITALS: BP_SYST 106
[2016-10-08] MEDS: SUCRALFATE 1 GM TABLET PO SCH ×3 (17:00→20:48)
--- NOTE | 2016-10-08 18:24 | NUR ---
1800/CLOSING NOTE PATIENT RESTING COMFORTABLY IN BED. PATIENT HAS NO NOTABLE SIGNS OF DISTRESS AT THIS TIME. IV RUNNING PER MD ORDERS. TAYLOR CATHETER DRAINING TO GRAVITY, PATIENT HAS COLOSTOMY FOR BOWEL MOVEMENTS. PATIENT TURNED AND REPOSITIONED ON PILLOWS. WOUND CARE COMPLETED WITH ELIZABETH WOUND CARE NURSE. PATIENT WOULD LIKE MEDICATIONS SOON AVAILABLE. PATIENTS BED IN LOWEST POSITION, CALL LIGHT WITHIN REACH, AND SIDE RAILS ARE UP FOR SAFETY. WILL CONTINUE TO MONITOR PATIENT FOR CHANGES IN STATUS.
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
[2016-10-08 20:00] VITALS: BP_SYST 105
--- NOTE | 2016-10-08 20:00 | NUR ---
OPENING NOTES PATIENT IS A/OX4. NO SIGNS OF DISTRESS. BREATHING IS NON LABORED. VITAL SIGNS ARE STABLE. IV, TAYLOR CATHETER ARE PATENT. PATIENT HAS COMPLAINTS OF PAIN. WILL GIVE PRN PAIN MEDICATION. PATIENT INSTRUCTED TO CALL FOR ASSISTANCE. CALL LIGHT IS WITHIN REACH. SAFETY MEASURES ARE IN PLACE. BED ALARM IS ON. WILL CONTINUE TO MONITOR.
--- NOTE | 2016-10-08 22:02 | NUR ---
ROUNDS PATIENT WAS REPOSITIONED IN BED. PATIENT IS IN BED RESTING COMFORTABLY AND WATCHING TV. NO SIGNS OF DISTRESS. BREATHING IS NON LABORED. CALL LIGHT IS WITHIN REACH. BED ALARM IS ON. WILL CONTINUE TO MONITOR.
[2016-10-09] VITALS: BP_SYST 98
[2016-10-09] MEDS: D5NS 1,000 ML IV SCH ×2 (00:09→11:58)
[2016-10-09] MEDS: PIPERACILLIN/TAZO 3.375/DEX-IS 50 ML IV SCH ×3 (00:09→11:58)
--- NOTE | 2016-10-09 00:55 | NUR ---
ROUNDS PATIENT IS IN BED SLEEPING. NO SIGNS OF DISTRESS. BREATHING IS NON LABORED. CALL LIGHT IS WITHIN REACH. SAFETY MEASURES ARE IN PLACE. WILL CONTINUE TO MONITOR.
[2016-10-09] MEDS: MORPHINE 4 MG/ML INJ. SYRINGE IVP PRN ×3 (01:50→19:06)
--- NOTE | 2016-10-09 01:54 | NUR ---
ROUNDS PATIENT WAS GIVEN PUDDING AND WATER.
[2016-10-09 04:00] VITALS: BP_SYST 98
--- NOTE | 2016-10-09 04:31 | NUR ---
ROUNDS PATIENT IS IN BED SLEEPING. NO SIGNS OF DISTRESS. BREATHING IS NON LABORED. CALL LIGHT IS WITHIN REACH. WILL CONTINUE TO MONITOR.
--- NOTE | 2016-10-09 05:30 | NUR ---
WOUND CARE WOUND TO COCCYX AND LOWER ABDOMINAL WERE CLEANED AND DRESSING CHANGED PER WOUND CARE GUIDELINE. PICTURES WERE ALSO TAKING. PATIENT TOLERATED IT WELL.
[2016-10-09] MEDS: INSULIN ASPART 100 UNITS/ML, 10 ML VIAL (NovoLOG) SUBCUT PRN ×2 (06:34→12:14)
[2016-10-09 07:43] LABS: BASOPHILS # (AUTO) 0.1 K/uL (0.0-0.2); BASOPHILS % (AUTO) 0.9 % (0.0-2.0); EOSINOPHILS # (AUTO) 0.2 K/uL (0.0-0.4); EOSINOPHILS % (AUTO) 3.3 % (0.0-4.0); HEMATOCRIT 26.8 % (36-48); HEMOGLOBIN 8.9 g/dL (12.0-16.0); LYMPHOCYTES # (AUTO) 2.1 K/uL (1.0-5.5); LYMPHOCYTES % (AUTO) 36.7 % (20.5-51.5); MEAN CORPUSCULAR HEMOGLOBIN 32 pg (27-31); MEAN CORPUSCULAR HGB CONC 33 % (32-36); MEAN CORPUSCULAR VOLUME 96 fL (79.0-98.0); MONOCYTES # (AUTO) 0.3 K/uL (0.0-1.0); NEUTROPHILS % (AUTO) 53.1 % (40.0-70.0); PLATELET COUNT (AUTO) 244 K/uL (130-430); RED BLOOD CELL COUNT(AUTO) 2.78 MIL/uL (4.2-6.2); RED CELL DISTRIBUTION WIDTH 12.3 % (9.0-15.0); WHITE BLOOD COUNT (AUTO) 5.7 K/uL (4.8-10.8)
--- NOTE | 2016-10-09 07:48 | NUR ---
Nutrition Note Nutrition Consult (Wound) received 10/08/161922. Pt was seen and assessed by RD on 10/08/16. Please refer to Nutrition Assessment for details. RD to continue to follow per nutrition care standards.
--- NOTE | 2016-10-09 07:59 | NUR ---
WOUND CARE INTERDRY WAS PLACE IN THE LOWER ABDOMINAL FOLD. PATIENT TOLERATED IT WELL.
[2016-10-09 08:00] VITALS: BP_SYST 105
--- NOTE | 2016-10-09 08:00 | NUR ---
OPENING NOTE PATIENT LYING ON BED, WAS ASSESSED, VITAL SIGNS STABLE, WILL FOLLOW UP WITH PATIENT MED AT 0900
--- NOTE | 2016-10-09 08:00 | NUR ---
CLOSING NOTES PATIENT IS IN BED RESTING COMFORTABLY. NO SIGNS OF DISTRESS. BREATHING IS NON LABORED. TAYLOR CATHETER AND IV ARE PATENT. CALL LIGHT IS WITHIN REACH. SAFETY MEASURES ARE IN PLACE. REPORT GIVEN TO MORNING NURSE.
[2016-10-09 08:09] LABS: ALBUMIN 1.8 g/dL (3.4-4.8); BILIRUBIN,DIRECT 0.1 mg/dL (0.0-0.3); CALCIUM 7.9 mg/dL (8.4-11.0); CREATININE 0.87 mg/dL (0.55-1.30); POTASSIUM 4.2 mmol/L (3.5-5.1); TOTAL BILIRUBIN 0.4 mg/dL (0.0-1.0); TOTAL PROTEIN, SERUM 5.4 g/dL (6.4-8.3)
[2016-10-09] MEDS: SUCRALFATE 1 GM TABLET PO SCH ×3 (09:40→17:20)
[2016-10-09] MEDS: PANTOPRAZOLE SODIUM 40 MG/VIAL (PROTONIX) IVP SCH (09:40)
[2016-10-09] MEDS: SERTRALINE HCL 50 MG TABLET PO SCH (09:40)
[2016-10-09] MEDS: GABAPENTIN 300 MG CAPSULE PO SCH (09:40)
[2016-10-09] MEDS: METHOCARBAMOL 500 MG TABLET PO SCH ×2 (09:54→15:01)
--- NOTE | 2016-10-09 10:20 | NUR ---
DISCHARGE PLANNING DC order back to SNF. Faxed SNF referral to [phone]. Will follow up. Addendum: 10/09/16 at 1629 by Cyndi Gaines DP Spoke with Juan Luis who stated patient has not wanted to return back to facility. Met with patient at bedside who agreed to return back to [facility]. Called Juan Luis at [facility] who will return call with bed assignment. Addendum: 10/09/16 at 1630 by Cyndi Gaines DP Placed transportation packet in nurse station. Any ambulance can be arranged. Pending bed assignment. Addendum: 10/09/16 at 1703 by Cyndi Gaines DP Spoke with Juan Ulis patient assigned to [facility] room 17 RN to report bed available anytime. FAUSTO Lopez made aware. Called [facility] [phone] spoke with Dion arranged S transport fruit picker 6:30pm. Placed transportation packet in nurse station. Addendum: 10/09/16 at 1703 by Cyndi Gaines DP Spoke with patient mother Samanta Muhammad [phone] who was made aware.
--- NOTE | 2016-10-09 12:00 | NUR ---
RN ROUNDS PATIENT LYING ON BED, VITAL SIGNS STABLE, PATIENT HAS BEEN PUT A NEW SALINE LOCK TO HER RIGHT ARM
[2016-10-09 14:59] VITALS: BP_SYST 124
--- NOTE | 2016-10-09 18:00 | NUR ---
RN CLOSING NOTES PATIENT LYING ON BED, PATIENT WILL BE TRANSFERED TO [facility], BY AMBULANCE WILL GIVE REPORT AND PREPARE THE D/C TRANSFER SUMMARY
[2016-10-09 18:26] VITALS: BP_SYST 124
[2016-10-09 18:44] VITALS: BP_SYST 104
== END 2016-10-09 19:15 ==
LOC: SED 07:24 → SMU 08:50
PROVIDERS: ADMIT General Practice; ATTEND General Practice
PROC: 0DB78ZX Excision of Stomach, Pylorus, Via Natural or Artificial Opening Endoscopic, Diagnostic (ICD-10-PCS; principal; 2016-10-07 11:00)
DX: K80.20 Calculus of gallbladder without cholecystitis without obstruction (principal); L89.154 Pressure ulcer of sacral region, stage 4; G82.20 Paraplegia, unspecified; E44.0 Moderate protein-calorie malnutrition; E11.65 Type 2 diabetes mellitus with hyperglycemia; N39.0 Urinary tract infection, site not specified; F11.20 Opioid dependence, uncomplicated; E66.9 Obesity, unspecified; Z16.12 Extended spectrum beta lactamase (ESBL) resistance; G89.4 Chronic pain syndrome; K29.70 Gastritis, unspecified, without bleeding; Z88.1 Allergy status to other antibiotic agents; Z88.2 Allergy status to sulfonamides; Z79.899 Other long term (current) drug therapy; Z79.4 Long term (current) use of insulin; Z93.1 Gastrostomy status; Z68.26 Body mass index [BMI] 26.0-26.9, adult; Z74.01 Bed confinement status
CPT/HCPCS: 36415; 43239; 76700-TC; 78226; 80048; 80053; 80076; 81000-TC; 82962; 83605; 83690-TC; 83735-TC; 84484; 85025; 85610-TC; 85730-TC; 87040-TC; 87081; 87086; 88305; 88312; 88313; 96361; 96374; 96375; 99285; A4371; A9537; C9113; J1815; J2175; J2250; J2270; J2405; J2543; J7030; J7042; Q0163

== ENCOUNTER 2017-01-14 13:27 | Inpatient (IN) | payer MEDICAID ==
[~2017-01-14] VITALS: Ht 167.6 cm; Wt 79.4 kg
[2017-01-14 13:27] VITALS: BP_SYST 93
[~2017-01-14 13:27] MED LIST changes: +ESOM20CA38 PO
[2017-01-14] MEDS ORDERED: NACL 0.9% 1,000 ML IV ONE (13:45)
[2017-01-14 14:03] LABS: BASOPHILS # (AUTO) 0.1 K/uL (0.0-0.2); BASOPHILS % (AUTO) 0.9 % (0.0-2.0); EOSINOPHILS # (AUTO) 0.1 K/uL (0.0-0.4); EOSINOPHILS % (AUTO) 1.6 % (0.0-4.0); HEMATOCRIT 33.7 % (36-48); HEMOGLOBIN 11.4 g/dL (12.0-16.0); LYMPHOCYTES # (AUTO) 1.5 K/uL (1.0-5.5); LYMPHOCYTES % (AUTO) 20.9 % (20.5-51.5); MEAN CORPUSCULAR HEMOGLOBIN 32 pg (27-31); MEAN CORPUSCULAR HGB CONC 34 % (32-36); MEAN CORPUSCULAR VOLUME 95 fL (79.0-98.0); MONOCYTES # (AUTO) 0.3 K/uL (0.0-1.0); MONOCYTES % (AUTO) 3.5 % (1.7-9.3); NEUTROPHILS # (AUTO) 5.3 K/uL (1.8-7.7); NEUTROPHILS % (AUTO) 73.1 % (40.0-70.0); PLATELET COUNT (AUTO) 237 K/uL (130-430); RED BLOOD CELL COUNT(AUTO) 3.55 MIL/uL (4.2-6.2); RED CELL DISTRIBUTION WIDTH 12.2 % (9.0-15.0); WHITE BLOOD COUNT (AUTO) 7.3 K/uL (4.8-10.8)
[2017-01-14 14:19] LABS: CALCIUM 8.2 mg/dL (8.4-11.0); CREATININE 0.77 mg/dL (0.55-1.30); POTASSIUM 4.8 mmol/L (3.5-5.1)
[2017-01-14 14:23] LABS: INR 0.9 (0.8-1.2); PROTHROMBIN TIME 9.8 SECS (9.5-12.5)
[2017-01-14 14:24] LABS: ALBUMIN 2.2 g/dL (3.4-4.8); TOTAL BILIRUBIN 0.2 mg/dL (0.0-1.0)
[2017-01-14] MEDS ORDERED: NACL 0.9% 500 ML IV ONE (14:30)
[2017-01-14] MEDS ORDERED: ACET-2165 PO (16:02)
[2017-01-14] MEDS ORDERED: ZOLP5TAB2 PO (16:02)
[2017-01-14] MEDS ORDERED: HYDR-1189 PO (16:02)
[2017-01-14] MEDS ORDERED: INSU100V9 SUBCUT (16:02)
[2017-01-14] MEDS ORDERED: MULT PO (16:02)
[2017-01-14 16:25] LABS: BILIRUBIN,URINE NEGATIVE (NEGATIVE); BLOOD, URINE 2+ (NEGATIVE); CLARITY/URINE CLOUDY (CLEAR); COLOR,URINE YELLOW (YELLOW); GLUCOSE,URINE TRACE (NEGATIVE); KETONES,URINE NEGATIVE (NEGATIVE); LEUKOCYTE ESTERASE ,URINE 2+ (NEGATIVE); NITRITE, URINE NEGATIVE (NEGATIVE); PROTEIN URINE 3+ (NEGATIVE); UROBILINOGEN,URINE 0.2 (0.2-1.0)
[2017-01-14 16:29] LABS: BACTERIA,URINE MANY /HPF (None Seen); MUCUS,URINE 3+ /LPF (None Seen); WBC,URINE >100 /HPF (0-3)
[2017-01-14] MEDS ORDERED: cefTRIAXone 0.5 GM in D5W 50 ML IV ONE (16:45)
[2017-01-14] MEDS ORDERED: IOHEXOL 350 mgI/mL, 150 ML INFUS..BTL IV ONE (16:49)
[2017-01-14] MEDS ORDERED: cefTRIAXone 1 GM IVPB PREMIX 50 ML IV ONE (17:00)
[2017-01-14] MEDS ORDERED: HYDROcodone/ACETAMIN 5-325 MG TAB (NORCO/ VICODIN) PO SCH (18:15)
[2017-01-14] MEDS ORDERED: ONDANSETRON 4 MG ODT TAB PO PRN (18:15)
[2017-01-14] MEDS ORDERED: ZOLPIDEM TARTRATE 5 MG TABLET PO SCH (18:15)
[2017-01-14] MEDS ORDERED: ACETAMINOPHEN 325 MG TABLET PO SCH (18:15)
[2017-01-14 18:22] VITALS: BP_SYST 133
[2017-01-14] MEDS ORDERED: HYDROmorphone 2 MG TAB PO PRN (18:30)
[2017-01-14 20:00] VITALS: BP_SYST 115
[2017-01-14] MEDS: METHOCARBAMOL 500 MG TABLET PO SCH (20:44)
[2017-01-14] MEDS: SENNOSIDES 8.6 MG TABLET PO SCH (20:45)
[2017-01-14] MEDS ORDERED: ONDANSETRON HCL 4 MG/2 ML VIAL IVP ONE (23:45)
[2017-01-14] MEDS ORDERED: MORPHINE 2 MG/ML INJ. SYRINGE IVP ONE (23:45)
[2017-01-15 03:38] VITALS: BP_SYST 110
[2017-01-15 07:04] LABS: ALBUMIN 2.1 g/dL (3.4-4.8); CALCIUM 8.2 mg/dL (8.4-11.0); CREATININE 0.71 mg/dL (0.55-1.30); POTASSIUM 4.7 mmol/L (3.5-5.1); TOTAL BILIRUBIN 0.3 mg/dL (0.0-1.0)
[2017-01-15 07:10] LABS: BASOPHILS % (AUTO) 0.7 % (0.0-2.0); EOSINOPHILS # (AUTO) 0.2 K/uL (0.0-0.4); EOSINOPHILS % (AUTO) 2.2 % (0.0-4.0); HEMATOCRIT 33.1 % (36-48); HEMOGLOBIN 11.3 g/dL (12.0-16.0); LYMPHOCYTES # (AUTO) 2.4 K/uL (1.0-5.5); LYMPHOCYTES % (AUTO) 33.2 % (20.5-51.5); MEAN CORPUSCULAR HEMOGLOBIN 33 pg (27-31); MEAN CORPUSCULAR HGB CONC 34 % (32-36); MEAN CORPUSCULAR VOLUME 96 fL (79.0-98.0); MONOCYTES # (AUTO) 0.5 K/uL (0.0-1.0); MONOCYTES % (AUTO) 6.5 % (1.7-9.3); NEUTROPHILS % (AUTO) 57.4 % (40.0-70.0); PLATELET COUNT (AUTO) 244 K/uL (130-430); RED BLOOD CELL COUNT(AUTO) 3.45 MIL/uL (4.2-6.2); RED CELL DISTRIBUTION WIDTH 12.8 % (9.0-15.0); WHITE BLOOD COUNT (AUTO) 7.1 K/uL (4.8-10.8)
[2017-01-15 08:45] VITALS: BP_SYST 122
[2017-01-15] MEDS: SENNOSIDES 8.6 MG TABLET PO SCH ×2 (09:00→21:00)
[2017-01-15] MEDS: SERTRALINE HCL 50 MG TABLET PO SCH (09:00)
[2017-01-15] MEDS: METHOCARBAMOL 500 MG TABLET PO SCH ×3 (09:54→21:08)
[2017-01-15] MEDS: PANTOPRAZOLE SODIUM 40 MG TAB PO SCH (09:54)
[2017-01-15] MEDS: GABAPENTIN 300 MG CAPSULE PO SCH (09:54)
[2017-01-15] MEDS ORDERED: MORPHINE 2 MG/ML INJ. SYRINGE IVP ONE (11:45)
[2017-01-15] MEDS ORDERED: ONDANSETRON HCL 4 MG/2 ML VIAL IVP ONE (11:45)
[2017-01-15] MEDS: CEFEPIME 1 GM in D5W 50 ML IV SCH ×2 (12:02→21:07)
[2017-01-15 12:22] VITALS: BP_SYST 142
[2017-01-15] MEDS: ENOXAPARIN SODIUM 30 MG/0.3 ML SYRINGE SUBCUT SCH (15:37)
[2017-01-15 16:55] VITALS: BP_SYST 135
[2017-01-15] MEDS: ONDANSETRON HCL 4 MG/2 ML VIAL IVP PRN (17:55)
[2017-01-15 20:00] VITALS: BP_SYST 139
[2017-01-15 23:20] VITALS: BP_SYST 101
[2017-01-15] MEDS: MORPHINE 2 MG/ML INJ. SYRINGE IVP PRN (23:27)
[2017-01-15] MEDS: INSULIN ASPART 100 UNITS/ML, 10 ML VIAL (NovoLOG) SUBCUT PRN (23:28)
[2017-01-16 03:47] VITALS: BP_SYST 121
[2017-01-16] MEDS: MORPHINE 2 MG/ML INJ. SYRINGE IVP PRN ×4 (03:48→19:51)
[2017-01-16 06:41] LABS: BASOPHILS % (AUTO) 0.8 % (0.0-2.0); EOSINOPHILS # (AUTO) 0.2 K/uL (0.0-0.4); HEMATOCRIT 31.6 % (36-48); HEMOGLOBIN 10.7 g/dL (12.0-16.0); LYMPHOCYTES # (AUTO) 2.5 K/uL (1.0-5.5); LYMPHOCYTES % (AUTO) 41.2 % (20.5-51.5); MEAN CORPUSCULAR HEMOGLOBIN 33 pg (27-31); MEAN CORPUSCULAR HGB CONC 34 % (32-36); MEAN CORPUSCULAR VOLUME 97 fL (79.0-98.0); MONOCYTES # (AUTO) 0.4 K/uL (0.0-1.0); NEUTROPHILS # (AUTO) 2.9 K/uL (1.8-7.7); PLATELET COUNT (AUTO) 218 K/uL (130-430); RED BLOOD CELL COUNT(AUTO) 3.26 MIL/uL (4.2-6.2); RED CELL DISTRIBUTION WIDTH 12.5 % (9.0-15.0)
[2017-01-16 07:12] LABS: ALBUMIN 2.1 g/dL (3.4-4.8); BILIRUBIN,DIRECT 0.1 mg/dL (0.0-0.3); CALCIUM 8.4 mg/dL (8.4-11.0); CREATININE 1.39 mg/dL (0.55-1.30); POTASSIUM 5.3 mmol/L (3.5-5.1); TOTAL BILIRUBIN 0.3 mg/dL (0.0-1.0)
[2017-01-16 08:00] VITALS: BP_SYST 122
[2017-01-16] MEDS: METHOCARBAMOL 500 MG TABLET PO SCH ×3 (10:47→21:03)
[2017-01-16] MEDS: PANTOPRAZOLE SODIUM 40 MG TAB PO SCH (10:47)
[2017-01-16] MEDS: SERTRALINE HCL 50 MG TABLET PO SCH (10:48)
[2017-01-16] MEDS: SENNOSIDES 8.6 MG TABLET PO SCH ×2 (10:48→21:00)
[2017-01-16] MEDS: GABAPENTIN 300 MG CAPSULE PO SCH (10:48)
[2017-01-16] MEDS: ENOXAPARIN SODIUM 30 MG/0.3 ML SYRINGE SUBCUT SCH (10:50)
[2017-01-16] MEDS: CEFEPIME 1 GM in D5W 50 ML IV SCH ×2 (10:56→21:03)
[2017-01-16 12:11] VITALS: BP_SYST 113
[2017-01-16] MEDS: INSULIN ASPART 100 UNITS/ML, 10 ML VIAL (NovoLOG) SUBCUT PRN ×3 (12:23→21:08)
[2017-01-16] MEDS ORDERED: NACL 0.9% 1,000 ML IV SCH (16:54)
[2017-01-16 16:59] VITALS: BP_SYST 121
[2017-01-16] MEDS ORDERED: BALSAM PERU/CASTOR OIL 60 GM OINT...G. TP PRN (18:00)
[2017-01-16 20:24] VITALS: BP_SYST 110
[2017-01-17 00:15] VITALS: BP_SYST 125
[2017-01-17] MEDS: MORPHINE 2 MG/ML INJ. SYRINGE IVP PRN ×6 (00:56→23:25)
[2017-01-17 04:06] VITALS: BP_SYST 103
[2017-01-17] MEDS: INSULIN ASPART 100 UNITS/ML, 10 ML VIAL (NovoLOG) SUBCUT PRN ×2 (06:27→21:12)
[2017-01-17 06:53] LABS: CALCIUM 8.4 mg/dL (8.4-11.0); CREATININE 1.7 mg/dL (0.55-1.30); POTASSIUM 5.4 mmol/L (3.5-5.1)
[2017-01-17 08:29] VITALS: BP_SYST 122
[2017-01-17] MEDS ORDERED: NACL 0.9% 1,000 ML IV SCH (08:44)
[2017-01-17] MEDS: SODIUM POLYSTYRENE SULFONATE 15 GM/60 ML UDBTL PO ONE ×2 (08:45→09:45)
[2017-01-17] MEDS: BALSAM PERU/CASTOR OIL 60 GM OINT...G. TP SCH (09:00)
[2017-01-17] MEDS: SENNOSIDES 8.6 MG TABLET PO SCH ×3 (09:00→21:00)
[2017-01-17] MEDS: CEFEPIME 1 GM in D5W 50 ML IV SCH ×2 (09:47→21:05)
[2017-01-17] MEDS: PANTOPRAZOLE SODIUM 40 MG TAB PO SCH (09:48)
[2017-01-17] MEDS: SERTRALINE HCL 50 MG TABLET PO SCH (09:48)
[2017-01-17] MEDS: GABAPENTIN 300 MG CAPSULE PO SCH (09:49)
[2017-01-17] MEDS: METHOCARBAMOL 500 MG TABLET PO SCH ×3 (09:49→21:05)
[2017-01-17] MEDS: ENOXAPARIN SODIUM 30 MG/0.3 ML SYRINGE SUBCUT SCH (09:49)
[2017-01-17] MEDS: LORazepam 1 MG TABLET PO PRN ×2 (10:35→23:23)
[2017-01-17] MEDS: ONDANSETRON HCL 4 MG/2 ML VIAL IVP PRN ×2 (10:36→18:44)
[2017-01-17 11:28] VITALS: BP_SYST 111
[2017-01-17 15:33] VITALS: BP_SYST 131
[2017-01-17] MEDS ORDERED: POTASSIUM CHLORIDE 10 MEQ in 0.45% NACL 1,000 ML IV SCH (19:15)
[2017-01-17] MEDS ORDERED: KCL 20 mEq in 100 mL (PREMIX) 100 ML IV ONE (21:27)
[2017-01-17] MEDS: 0.45% NS 1,000 ML IV SCH (21:45)
[2017-01-18 00:55] VITALS: BP_SYST 134
[2017-01-18 04:52] VITALS: BP_SYST 113
[2017-01-18] MEDS: MORPHINE 2 MG/ML INJ. SYRINGE IVP PRN ×4 (05:20→17:18)
[2017-01-18 05:59] LABS: CALCIUM 8.1 mg/dL (8.4-11.0); CREATININE 1.56 mg/dL (0.55-1.30); POTASSIUM 5.2 mmol/L (3.5-5.1)
[2017-01-18 08:17] VITALS: BP_SYST 128
[2017-01-18] MEDS: SERTRALINE HCL 50 MG TABLET PO SCH (09:00)
[2017-01-18] MEDS: SENNOSIDES 8.6 MG TABLET PO SCH (09:00)
[2017-01-18] MEDS: 0.45% NS 1,000 ML IV SCH (09:31)
[2017-01-18] MEDS: CEFEPIME 1 GM in D5W 50 ML IV SCH (09:31)
[2017-01-18] MEDS: ONDANSETRON HCL 4 MG/2 ML VIAL IVP PRN ×2 (09:32→17:17)
[2017-01-18] MEDS: ENOXAPARIN SODIUM 30 MG/0.3 ML SYRINGE SUBCUT SCH (09:32)
[2017-01-18] MEDS: GABAPENTIN 300 MG CAPSULE PO SCH (09:32)
[2017-01-18] MEDS: METHOCARBAMOL 500 MG TABLET PO SCH ×2 (09:33→14:38)
[2017-01-18] MEDS: LORazepam 1 MG TABLET PO PRN (09:33)
[2017-01-18] MEDS: PANTOPRAZOLE SODIUM 40 MG TAB PO SCH (09:33)
[2017-01-18] MEDS: BALSAM PERU/CASTOR OIL 60 GM OINT...G. TP SCH (09:35)
[2017-01-18 12:35] VITALS: BP_SYST 100
[2017-01-18 16:25] VITALS: BP_SYST 102
[2017-01-18 16:27] VITALS: BP_SYST 128
[2017-01-18] MEDS ORDERED: SODIUM BICARBONATE 650 MG TABLET PO SCH (17:00)
[2017-01-18] MEDS: INSULIN ASPART 100 UNITS/ML, 10 ML VIAL (NovoLOG) SUBCUT PRN (17:01)
== END 2017-01-18 17:50 | DRG 466 ==
LOC: SED 13:27 → STU 17:45 → SMU 01-16 15:40
PROVIDERS: ADMIT Internal Medicine; ATTEND Internal Medicine
DX: T83.511A Infection and inflammatory reaction due to indwelling urethral catheter, initial encounter (principal); E43 Unspecified severe protein-calorie malnutrition; L89.154 Pressure ulcer of sacral region, stage 4; N17.9 Acute kidney failure, unspecified; G82.20 Paraplegia, unspecified; E11.9 Type 2 diabetes mellitus without complications; K80.80 Other cholelithiasis without obstruction; F32.9 Major depressive disorder, single episode, unspecified; N31.9 Neuromuscular dysfunction of bladder, unspecified; N39.0 Urinary tract infection, site not specified; Y84.6 Urinary catheterization as the cause of abnormal reaction of the patient, or of later complication, without mention of misadventure at the time of the procedure; Y92.89 Other specified places as the place of occurrence of the external cause; Z68.28 Body mass index [BMI] 28.0-28.9, adult; Z93.3 Colostomy status; Z88.1 Allergy status to other antibiotic agents; Z88.8 Allergy status to other drugs, medicaments and biological substances; Z87.440 Personal history of urinary (tract) infections
CPT/HCPCS: 36415; 71010; 76700-TC; 78226; 80048; 80053; 80076; 81000-TC; 82150-TC; 82962; 82977-TC; 83605; 83690-TC; 83735-TC; 85025; 85610-TC; 85730-TC; 87040-TC; 87081; 87086; 93005; 96365; 99285; A4409; A5061; A9537; J0692; J0696; J1650; J1815; J2270; J2405; J3480; J7030; J7040; J7060; Q9967

== ENCOUNTER 2017-02-14 20:49 | Inpatient (IN) | payer MEDICAID ==
[~2017-02-14] VITALS: Ht 167.6 cm; Wt 77.1 kg
[2017-02-14 20:49] VITALS: BP_SYST 105
[~2017-02-14 20:49] MED LIST changes: +ACET-2165 PO; -HYDR4TAB26 PO; +MULT PO; +ZOLP5TAB2 PO
[2017-02-14] MEDS ORDERED: NACL 0.9% 1,000 ML IV SCH (20:59)
[2017-02-14] MEDS ORDERED: ONDANSETRON HCL 4 MG/2 ML VIAL IVP ONE (21:00)
[2017-02-14] MEDS ORDERED: KETOROLAC TROMETHAMINE 30 MG VIAL IVP ONE (21:00)
[2017-02-14 21:29] LABS: BASOPHILS # (AUTO) 0.1 K/uL (0.0-0.2); BASOPHILS % (AUTO) 0.9 % (0.0-2.0); EOSINOPHILS # (AUTO) 0.1 K/uL (0.0-0.4); EOSINOPHILS % (AUTO) 1.4 % (0.0-4.0); HEMATOCRIT 34.2 % (36-48); HEMOGLOBIN 11.4 g/dL (12.0-16.0); LYMPHOCYTES # (AUTO) 1.4 K/uL (1.0-5.5); MEAN CORPUSCULAR HEMOGLOBIN 32 pg (27-31); MEAN CORPUSCULAR HGB CONC 33 % (32-36); MEAN CORPUSCULAR VOLUME 95 fL (79.0-98.0); MONOCYTES # (AUTO) 0.3 K/uL (0.0-1.0); NEUTROPHILS # (AUTO) 5.4 K/uL (1.8-7.7); NEUTROPHILS % (AUTO) 74.7 % (40.0-70.0); PLATELET COUNT (AUTO) 262 K/uL (130-430); RED BLOOD CELL COUNT(AUTO) 3.59 MIL/uL (4.2-6.2); RED CELL DISTRIBUTION WIDTH 12.5 % (9.0-15.0); WHITE BLOOD COUNT (AUTO) 7.3 K/uL (4.8-10.8)
[2017-02-14 21:40] LABS: CALCIUM 9.3 mg/dL (8.4-11.0); CREATININE 0.76 mg/dL (0.55-1.30)
[2017-02-14 21:42] LABS: INR 0.9 (0.8-1.2); PROTHROMBIN TIME 9.5 SECS (9.5-12.5)
[2017-02-14 21:45] LABS: ALBUMIN 2.5 g/dL (3.4-4.8); TOTAL BILIRUBIN 0.4 mg/dL (0.0-1.0)
[2017-02-14 22:18] LABS: BILIRUBIN,URINE NEGATIVE (NEGATIVE); BLOOD, URINE 2+ (NEGATIVE); CLARITY/URINE CLOUDY (CLEAR); COLOR,URINE YELLOW (YELLOW); GLUCOSE,URINE TRACE (NEGATIVE); KETONES,URINE NEGATIVE (NEGATIVE); LEUKOCYTE ESTERASE ,URINE 2+ (NEGATIVE); NITRITE, URINE POSITIVE (NEGATIVE); PH,URINE 5.5 (5.0-8.0); PROTEIN URINE 3+ (NEGATIVE); UROBILINOGEN,URINE 0.2 (0.2-1.0)
[2017-02-14 22:28] LABS: WBC,URINE >100 /HPF (0-3)
[2017-02-14 22:29] LABS: BACTERIA,URINE MANY /HPF (None Seen); MUCUS,URINE None Seen /LPF (None Seen); URINE AMORPHOUS URATE 1+ /HPF (None Seen)
[2017-02-14] MEDS ORDERED: cefTRIAXone 1 GM IVPB PREMIX 50 ML IV ONE (22:45)
[2017-02-14] MEDS ORDERED: fentaNYL CITRATE/PF 100 MCG/2 ML AMP IVP ONE (22:45)
[2017-02-14 23:14] VITALS: BP_SYST 142
[2017-02-14] MEDS ORDERED: HYDROcodone/ACETAMIN 5-325 MG TAB (NORCO/ VICODIN) PO PRN (23:15)
[2017-02-14] MEDS ORDERED: ACETAMINOPHEN 325 MG TABLET PO PRN ×2 (23:15→23:30)
[2017-02-14] MEDS ORDERED: ACETAMINOPHEN 325 MG TABLET PO SCH (23:15)
[2017-02-14] MEDS ORDERED: ZOLPIDEM TARTRATE 5 MG TABLET PO PRN (23:15)
[2017-02-14] MEDS ORDERED: LORazepam 1 MG TABLET PO PRN (23:15)
[2017-02-14] MEDS ORDERED: ONDANSETRON 4 MG ODT TAB PO PRN (23:15)
[2017-02-14] MEDS ORDERED: 0.45% NS 500 ML IV ONE (23:30)
[2017-02-14] MEDS ORDERED: FAMOTIDINE PF 20 MG/2 ML VIAL IVP ONE (23:45)
[2017-02-15] MEDS ORDERED: PIPERACILLIN/TAZOBACTAM 3.375 GM/VIAL (ZOSYN) IV ONE (00:01)
[2017-02-15 00:43] VITALS: BP_SYST 142
[2017-02-15] MEDS: MORPHINE 4 MG/ML INJ. SYRINGE IVP PRN ×4 (03:05→22:46)
[2017-02-15 04:47] VITALS: BP_SYST 115
[2017-02-15] MEDS: PIPERACILLIN/TAZO 3.375/DEX-IS 50 ML IV SCH ×5 (06:27→23:06)
[2017-02-15 07:41] LABS: ANION GAP 10 (5-15); CALCIUM 8.7 mg/dL (8.4-11.0); CHLORIDE 115 mmol/L (98-107); CREATININE 0.89 mg/dL (0.55-1.30); GLUCOSE 154 mg/dL (70-99); POTASSIUM 5.2 mmol/L (3.5-5.1); SODIUM SERUM 142 mmol/L (136-145); UREA NITROGEN, BLOOD 39 mg/dL (8-21)
[2017-02-15 07:42] LABS: BASOPHILS % (AUTO) 0.8 % (0.0-2.0); EOSINOPHILS # (AUTO) 0.1 K/uL (0.0-0.4); EOSINOPHILS % (AUTO) 2.2 % (0.0-4.0); HEMATOCRIT 32.1 % (36-48); HEMOGLOBIN 10.7 g/dL (12.0-16.0); LYMPHOCYTES # (AUTO) 1.8 K/uL (1.0-5.5); LYMPHOCYTES % (AUTO) 28.9 % (20.5-51.5); MEAN CORPUSCULAR HEMOGLOBIN 32 pg (27-31); MEAN CORPUSCULAR HGB CONC 33 % (32-36); MEAN CORPUSCULAR VOLUME 96 fL (79.0-98.0); MONOCYTES # (AUTO) 0.4 K/uL (0.0-1.0); MONOCYTES % (AUTO) 6.5 % (1.7-9.3); NEUTROPHILS # (AUTO) 3.9 K/uL (1.8-7.7); NEUTROPHILS % (AUTO) 61.6 % (40.0-70.0); PLATELET COUNT (AUTO) 239 K/uL (130-430); RED BLOOD CELL COUNT(AUTO) 3.35 MIL/uL (4.2-6.2); RED CELL DISTRIBUTION WIDTH 12.2 % (9.0-15.0); WHITE BLOOD COUNT (AUTO) 6.2 K/uL (4.8-10.8)
[2017-02-15 07:54] LABS: GFR AFRICAN AMERICAN 91 mL/min (>90)
[2017-02-15] MEDS ORDERED: GABAPENTIN 300 MG CAPSULE PO SCH (09:00)
[2017-02-15 10:30] VITALS: BP_SYST 120
[2017-02-15] MEDS: FAMOTIDINE PF 20 MG/2 ML VIAL IVP SCH ×2 (11:19→22:46)
[2017-02-15 11:20] LABS: CHOLESTEROL 278 mg/dL (<200); HDL CHOLESTEROL 32 mg/dL (>55); LDL CHOLESTEROL 134 mg/dL (<100); THYROID STIMULATING HORMONE 7.59 uIu/mL (0.34-4.82); TRIGLYCERIDES 493 mg/dL (30-150)
[2017-02-15] MEDS ORDERED: DEXTROSE 50% JECT 50 ML DISP.SYRIN IVP PRN (11:45)
[2017-02-15 13:30] VITALS: BP_SYST 109
[2017-02-15] MEDS: SENNOSIDES 8.6 MG TABLET PO SCH ×3 (14:00→22:47)
[2017-02-15] MEDS: METHOCARBAMOL 500 MG TABLET PO SCH ×3 (15:00→22:46)
[2017-02-15] MEDS: CHOLECALCIFEROL (VITAMIN D3) 2,000 UNIT TABLET PO SCH (15:52)
[2017-02-15] MEDS: MULTIVITAMINS TAB 1 TABLET PO SCH (15:52)
[2017-02-15] MEDS: GABAPENTIN 300 MG CAPSULE PO SCH ×2 (15:53→22:46)
[2017-02-15] MEDS: SERTRALINE HCL 50 MG TABLET PO SCH (15:53)
[2017-02-15] MEDS: PANTOPRAZOLE SODIUM 40 MG TAB PO SCH (15:54)
[2017-02-15 16:00] VITALS: BP_SYST 121
[2017-02-15] MEDS: INSULIN REGULAR, HUMAN 100 UNITS/ML, 10 ML VIAL (novoLIN R) SUBCUT PRN (22:57)
[2017-02-16 00:37] VITALS: BP_SYST 123
[2017-02-16] MEDS: MORPHINE 4 MG/ML INJ. SYRINGE IVP PRN (04:41)
[2017-02-16 04:44] VITALS: BP_SYST 89
[2017-02-16] MEDS: PIPERACILLIN/TAZO 3.375/DEX-IS 50 ML IV SCH (06:35)
[2017-02-16] MEDS: INSULIN REGULAR, HUMAN 100 UNITS/ML, 10 ML VIAL (novoLIN R) SUBCUT PRN ×3 (06:39→21:35)
[2017-02-16 07:20] LABS: BASOPHILS % (AUTO) 0.7 % (0.0-2.0); EOSINOPHILS # (AUTO) 0.1 K/uL (0.0-0.4); EOSINOPHILS % (AUTO) 2.1 % (0.0-4.0); HEMATOCRIT 30.2 % (36-48); HEMOGLOBIN 10.3 g/dL (12.0-16.0); LYMPHOCYTES # (AUTO) 1.7 K/uL (1.0-5.5); LYMPHOCYTES % (AUTO) 34.5 % (20.5-51.5); MEAN CORPUSCULAR HEMOGLOBIN 33 pg (27-31); MEAN CORPUSCULAR HGB CONC 34 % (32-36); MEAN CORPUSCULAR VOLUME 95 fL (79.0-98.0); MONOCYTES # (AUTO) 0.4 K/uL (0.0-1.0); MONOCYTES % (AUTO) 8.3 % (1.7-9.3); NEUTROPHILS # (AUTO) 2.8 K/uL (1.8-7.7); NEUTROPHILS % (AUTO) 54.4 % (40.0-70.0); PLATELET COUNT (AUTO) 242 K/uL (130-430); RED BLOOD CELL COUNT(AUTO) 3.16 MIL/uL (4.2-6.2); RED CELL DISTRIBUTION WIDTH 12.1 % (9.0-15.0)
[2017-02-16 07:32] LABS: CALCIUM 8.8 mg/dL (8.4-11.0); CREATININE 1.18 mg/dL (0.55-1.30); POTASSIUM 5.2 mmol/L (3.5-5.1)
[2017-02-16] MEDS: MULTIVITAMINS TAB 1 TABLET PO SCH (09:00)
[2017-02-16] MEDS: FAMOTIDINE PF 20 MG/2 ML VIAL IVP SCH (09:00)
[2017-02-16] MEDS: GABAPENTIN 300 MG CAPSULE PO SCH ×2 (09:00→21:31)
[2017-02-16] MEDS: SENNOSIDES 8.6 MG TABLET PO SCH ×2 (09:00→21:00)
[2017-02-16] MEDS: METHOCARBAMOL 500 MG TABLET PO SCH ×3 (09:00→21:31)
[2017-02-16] MEDS: METOCLOPRAMIDE HCL 10 MG/2 ML VIAL IVP PRN ×2 (13:29→21:35)
[2017-02-16 15:44] VITALS: BP_SYST 95
[2017-02-16] MEDS: MUPIROCIN 2% TOPICAL OINTMENT 22 GM NS SCH ×2 (16:45→21:00)
[2017-02-16] MEDS ORDERED: FENOFIBRATE NANOCRYSTALLIZED 48 MG TABLET (TRICOR) PO ONE (17:00)
[2017-02-16] MEDS ORDERED: LEVOTHYROXINE SODIUM 0.025 MG TABLET PO ONE (17:00)
[2017-02-16] MEDS: PANTOPRAZOLE SODIUM 40 MG TAB PO SCH (18:28)
[2017-02-16] MEDS: SERTRALINE HCL 50 MG TABLET PO SCH (18:29)
[2017-02-16] MEDS: CHOLECALCIFEROL (VITAMIN D3) 2,000 UNIT TABLET PO SCH (18:29)
[2017-02-16] MEDS: PIPERACILLIN/TAZO 2.25G/DEX-IS 50 ML IV SCH ×2 (19:11→23:34)
[2017-02-16 23:49] VITALS: BP_SYST 112
[2017-02-17 05:23] VITALS: BP_SYST 104
[2017-02-17] MEDS: PIPERACILLIN/TAZO 2.25G/DEX-IS 50 ML IV SCH (06:09)
[2017-02-17] MEDS: LEVOTHYROXINE SODIUM 0.025 MG TABLET PO SCH (06:09)
[2017-02-17] MEDS: INSULIN REGULAR, HUMAN 100 UNITS/ML, 10 ML VIAL (novoLIN R) SUBCUT PRN ×2 (06:19→21:55)
[2017-02-17 08:00] VITALS: BP_SYST 101
[2017-02-17] MEDS: SENNOSIDES 8.6 MG TABLET PO SCH ×2 (08:39→21:37)
[2017-02-17] MEDS: FENOFIBRATE NANOCRYSTALLIZED 48 MG TABLET (TRICOR) PO SCH (08:39)
[2017-02-17] MEDS: GABAPENTIN 300 MG CAPSULE PO SCH ×2 (08:39→21:37)
[2017-02-17] MEDS: CHOLECALCIFEROL (VITAMIN D3) 2,000 UNIT TABLET PO SCH (08:39)
[2017-02-17] MEDS: PANTOPRAZOLE SODIUM 40 MG TAB PO SCH (08:39)
[2017-02-17] MEDS: MULTIVITAMINS TAB 1 TABLET PO SCH (08:40)
[2017-02-17] MEDS: SERTRALINE HCL 50 MG TABLET PO SCH (08:40)
[2017-02-17] MEDS: MORPHINE 2 MG/ML INJ. SYRINGE IVP PRN ×3 (08:42→21:40)
[2017-02-17] MEDS: METHOCARBAMOL 500 MG TABLET PO SCH ×3 (09:48→21:38)
[2017-02-17] MEDS: MUPIROCIN 2% TOPICAL OINTMENT 22 GM NS SCH ×2 (09:54→21:00)
[2017-02-17 12:54] VITALS: BP_SYST 131
[2017-02-17 16:12] VITALS: BP_SYST 116
[2017-02-17 17:12] LABS: CALCIUM 8.6 mg/dL (8.4-11.0); CREATININE 1.28 mg/dL (0.55-1.30)
[2017-02-17] MEDS: ERTAPENEM SODIUM 0.5 GM in NS 50 ML IV SCH (18:43)
[2017-02-17 20:00] VITALS: BP_SYST 95
[2017-02-18] VITALS (7 sets, daily range): BP systolic 93–128
[2017-02-18] MEDS: MORPHINE 4 MG/ML INJ. SYRINGE IVP PRN ×3 (05:29→19:13)
[2017-02-18] MEDS: METOCLOPRAMIDE HCL 10 MG/2 ML VIAL IVP PRN ×2 (05:30→11:44)
[2017-02-18] MEDS: INSULIN REGULAR, HUMAN 100 UNITS/ML, 10 ML VIAL (novoLIN R) SUBCUT PRN ×4 (06:26→20:34)
[2017-02-18 08:23] LABS: CALCIUM 8.5 mg/dL (8.4-11.0); CREATININE 1.26 mg/dL (0.55-1.30); POTASSIUM 4.9 mmol/L (3.5-5.1)
[2017-02-18] MEDS: SERTRALINE HCL 50 MG TABLET PO SCH (09:00)
[2017-02-18] MEDS: SENNOSIDES 8.6 MG TABLET PO SCH ×3 (09:00→20:21)
[2017-02-18] MEDS: LEVOTHYROXINE SODIUM 0.025 MG TABLET PO SCH (09:47)
[2017-02-18] MEDS: MULTIVITAMINS TAB 1 TABLET PO SCH (09:48)
[2017-02-18] MEDS: PANTOPRAZOLE SODIUM 40 MG TAB PO SCH (09:49)
[2017-02-18] MEDS: GABAPENTIN 300 MG CAPSULE PO SCH ×2 (09:49→20:21)
[2017-02-18] MEDS: CHOLECALCIFEROL (VITAMIN D3) 2,000 UNIT TABLET PO SCH (09:50)
[2017-02-18] MEDS: METHOCARBAMOL 500 MG TABLET PO SCH ×3 (09:50→20:21)
[2017-02-18] MEDS: FENOFIBRATE NANOCRYSTALLIZED 48 MG TABLET (TRICOR) PO SCH (10:19)
[2017-02-18] MEDS: MUPIROCIN 2% TOPICAL OINTMENT 22 GM NS SCH ×2 (12:03→20:25)
[2017-02-18] MEDS ORDERED: LEVO25TA58 PO (17:52)
[2017-02-18] MEDS ORDERED: VITD2000 PO (17:52)
[2017-02-18] MEDS ORDERED: PRO40 PO (17:52)
[2017-02-18] MEDS ORDERED: DOXY-4 PO (17:52)
[2017-02-18] MEDS ORDERED: BACTROBAN NS (17:52)
[2017-02-18] MEDS ORDERED: METO-290 PO (18:03)
[2017-02-18] MEDS ORDERED: ERTA1VIA IVPB (18:03)
[2017-02-18] MEDS ORDERED: DOXY100T2 PO (18:04)
[2017-02-18] MEDS ORDERED: MUPI1OIN4 (18:04)
[2017-02-18] MEDS ORDERED: LEVO50TA77 PO (18:04)
[2017-02-18] MEDS ORDERED: CHOL200019 PO (18:06)
[2017-02-18] MEDS: ERTAPENEM SODIUM 0.5 GM in NS 50 ML IV SCH (18:07)
[2017-02-18] MEDS ORDERED: DOXYCYCLINE HYCLATE 100 MG CAPSULE PO SCH (21:00)
[2017-02-19] MEDS ORDERED: BALSAM PERU/CASTOR OIL 60 GM OINT...G. TP SCH (09:00)
== END 2017-02-18 21:25 | DRG 243 ==
LOC: SED 20:49 → SMU 21:36
PROVIDERS: ADMIT Internal Medicine; ATTEND Internal Medicine
DX: K21.9 Gastro-esophageal reflux disease without esophagitis (principal); L89.154 Pressure ulcer of sacral region, stage 4; G82.20 Paraplegia, unspecified; G81.90 Hemiplegia, unspecified affecting unspecified side; N31.9 Neuromuscular dysfunction of bladder, unspecified; E87.5 Hyperkalemia; N39.0 Urinary tract infection, site not specified; K22.4 Dyskinesia of esophagus; E86.0 Dehydration; R11.10 Vomiting, unspecified; R13.10 Dysphagia, unspecified; B96.20 Unspecified Escherichia coli [E. coli] as the cause of diseases classified elsewhere; E11.9 Type 2 diabetes mellitus without complications; F19.10 Other psychoactive substance abuse, uncomplicated; Z16.12 Extended spectrum beta lactamase (ESBL) resistance; B96.1 Klebsiella pneumoniae [K. pneumoniae] as the cause of diseases classified elsewhere; Z16.39 Resistance to other specified antimicrobial drug; D64.9 Anemia, unspecified; K80.20 Calculus of gallbladder without cholecystitis without obstruction; E03.9 Hypothyroidism, unspecified; E78.5 Hyperlipidemia, unspecified; Z88.2 Allergy status to sulfonamides; Z22.322 Carrier or suspected carrier of Methicillin resistant Staphylococcus aureus; Z93.3 Colostomy status; Z87.440 Personal history of urinary (tract) infections; Z90.49 Acquired absence of other specified parts of digestive tract; Z88.1 Allergy status to other antibiotic agents; Z88.8 Allergy status to other drugs, medicaments and biological substances
CPT/HCPCS: 36415; 71010; 74220-TC; 74245-TC; 76705; 78226; 80048; 80053; 80061; 81000-TC; 82962; 83036; 83605; 83690-TC; 84443-TC; 84484; 85025; 85610-TC; 85730-TC; 87040-TC; 87081; 87086; 87186-TC; 93005; 96361; 96365; 96375; 97110-GP; 97530-GP; 99285; A4371; A9537; J0696; J1335; J1815; J1885; J2270; J2405; J2543; J2765; J3010; J3490; J7030; J7050; J7060; Q0162